=== PATIENT | female | born 1990 | race Caucasian/White ===

== ENCOUNTER 2020-11-22 23:08 | Emergency (ER) | payer OTHER ==
[~2020-11-22] VITALS: Ht 170.2 cm; Wt 112.9 kg
[2020-11-22 23:13] VITALS: BP 133/64
--- NOTE | 2020-11-22 23:15 | NUR ---
To ED bed 03
--- NOTE | 2020-11-22 23:55 | NUR ---
Dr. Cabrera examining patient.
[2020-11-23] MEDS ORDERED: ONDANSETRON 4 MG/2 ML VIAL IVP ONE
[2020-11-23] MEDS ORDERED: NACL 0.9% 2,000 ML IV ONE
--- NOTE | 2020-11-23 | NUR ---
PATIENT PRESENTS TO ED WITH C/O EATING AN "EDIBLE" LAST NIGHT . PT STATES "I CAN'T STOP SHAKING" . DENIES N/V/D; SKIN IS PINK/WARM/DRY; AAOX4 WITH EVEN AND STEADY GAIT;TWITCHING AND SHAKING. LUNGS CLEAR BL; HR EVEN AND REGULAR; PT DENIES ANY FEVER, CP, SOB, OR COUGH AT THIS TIME; PATIENT STATES PAIN OF 0/10 AT THIS TIME; VSS; PATIENT POSITIONED FOR COMFORT; HOB ELEVATED; BEDRAILS UP X2; BED DOWN. ER MD MADE AWARE OF PT STATUS.
--- NOTE | 2020-11-23 | NUR ---
IV ESTABLISHED.FLUIDS BEGUN
--- NOTE | 2020-11-23 01:30 | NUR ---
UA TO LAB
[2020-11-23 02:00] LABS: BARBITURATE, URINE NEGATIVE ng/ml (NEG <=200); BENZODIAZEPINE, URINE NEGATIVE ng/mL (NEG <=200); CANNABINOID, URINE POSITIVE ng/mL (NEG <=50); COCAINE, URINE NEGATIVE ng/mL (NEG <=300); OPIATE, URINE NEGATIVE ng/mL (NEG <=2000); PHENCYCLIDINE SCREEN,URINE NEGATIVE ng/mL (NEG <=25)
[2020-11-23] MEDS ORDERED: ONDANSETRON 4 MG/2 ML VIAL ONE (03:06)
--- NOTE | 2020-11-23 03:17 | NUR ---
READY FOR DISCHARGE. CALL TO PTS
[2020-11-23 03:20] VITALS: BP 121/57
--- NOTE | 2020-11-23 03:20 | NUR ---
Patient discharged with v/s stable. Written and verbal after care instructions given and explained. Patient verbalized understanding. Ambulatory with steady gait. All questions addressed prior to discharge. Advised to follow up with PMD.
== END 2020-11-23 03:20 | disposition home or self-care (01) ==
LOC: MED 23:08
DX: T40.7X1A Poisoning by cannabis (derivatives), accidental (unintentional), initial encounter (principal); R25.1 Tremor, unspecified; Y92.89 Other specified places as the place of occurrence of the external cause
CPT/HCPCS: 80305; 96361; 96374; 99283; J2405; J7030